=== PATIENT | female | born 1995 | race Two or more races ===

== ENCOUNTER 2020-01-02 12:48 | Emergency (ER) | payer MEDICAID ==
[~2020-01-02] VITALS: Ht 160 cm; Wt 48.1 kg
[2020-01-02 14:36] VITALS: BP 110/78
== END 2020-01-02 14:36 | disposition home or self-care (01) ==
LOC: ER 12:48
DX: H61.21 Impacted cerumen, right ear (principal); F79 Unspecified intellectual disabilities
CPT/HCPCS: 69210; 99284